=== PATIENT | male | born 1985 | race African-American/Black ===

== ENCOUNTER → 2018-06-19 | Day surgery (SDC) | payer OTHER ==
[~2018-06-19] MED LIST: Fentanyl 100 MCG/2 ML VIAL ONE; Lidocaine 1% PF 5 ML VIAL ONE; Ondansetron HCl/PF 4 MG/2 ML Vial ONE; PHENYLEPHRINE-NS 100 MCG/ML 10 ML SYRINGE ONE; PROPOFOL 200 MG/20 ML VIAL ONE; SUGAMMADEX SODIUM 500 MG/5 ML VIAL ONE
--- NOTE | 2018-06-19 05:42 | CON ---
DATE OF CONSULTATION: 06/19/2018 CHIEF COMPLAINT: Foreign body in urethra. HISTORY: Mr. Mejias is a 33-year-old inmate in [place] longterm brought in after patient passed a foreign body into the urethra and also attempt to swallow foreign body. Imaging demonstrates what lo oks like a piece of paper clip in the posterior urethra. Patient has a prior history of similar inci dents. Most recently had a foreign body removed from the GI tract here in 05/2017. He also states t hat he has had previous foreign bodies removed from the urinary tract, although no records of that be ing performed at this facility and can be found. He denies any pain in the urinary tract at this todd e. He has noted some blood in the urine. PAST MEDICAL HISTORY: Bipolar disorder. PAST SURGICAL HISTORY: Removal of foreign bodies. ALLERGIES: No known drug allergies. SOCIAL HISTORY: He is a nonsmoker, although he has smoked in the past. He is incarcerated. MEDICATIONS: Please see list includes psychiatric meds. PHYSICAL EXAMINATION: GENERAL: He is awake and alert, is in no distress at this time. CHEST: Clear. ABDOMEN: Soft, nontender, no palpable masses. Liver and spleen are palpable. No abdominal tenderne ss noted. IMAGING: Demonstrates metallic foreign body in the region of the proximal urethra. IMPRESSION: Urethral foreign body. RECOMMENDATIONS: Cystoscopic and possible open removal of urethral foreign body. The procedure, pot ential limitations, alternatives, and complications have been discussed with him. He does wish to pr oceed.
--- NOTE | 2018-06-19 06:31 | OP ---
PREOPERATIVE DIAGNOSIS: Urethral foreign body. POSTOPERATIVE DIAGNOSIS: Urethral foreign body. PROCEDURE: Cystoscopy, removal of urethral foreign body. SURGEON: Daren Alves M.D. ANESTHESIA: General. INDICATIONS: Mr. Mejias is an incarcerated inmate at [facility], who has a history of swallo wing foreign bodies and placing foreign bodies in the urinary tract. He did this and was brought to the emergency room. DETAILS OF PROCEDURE: The patient was given general anesthesia. He first underwent removal of respi ratory tract foreign body by Dr. Davis. This portion will be dictated by him. He was then sterilely prepped and draped in lithotomy position. The cystoscope was passed into the urethra. A metal fore ign body was noted just distal to the external sphincter. It was grasped with grasping forceps and r emoved without difficulty. The cystoscope was then passed into the bladder and bladder was examined in its entirety. There were no additional foreign bodies seen. Bladder was drained, cystoscope was removed. The patient was transferred from the operating room to recovery room in stable condition. COMPLICATIONS: None. ESTIMATED BLOOD LOSS: Minimal.
--- NOTE | 2018-06-19 09:48 | RAD ---
2 VIEWS NECK SOFT TISSUES: Date: 06/19/18 COMPARISON: Radiographs from [facility] dated 06/18/18 and radiographs from [facility] dated 06/10/17. HISTORY: Ingested radiopaque foreign body. FINDINGS: Two views of the neck soft tissues shows radiopaque foreign bodies just anterior to the epiglottis. T here is a small amount of air just inferior and anterior to the radiopaque foreign bodies which is no nspecific and could be submucosal. The paper clip seen on the prior examination has been removed or h as passed more distally. No prevertebral soft tissue swelling is seen. IMPRESSION: Radiopaque foreign bodies as above. POS: [facility]
--- NOTE | 2018-06-19 09:51 | RAD ---
SINGLE VIEW OF THE PELVIS: Comparison: Radiograph from [facility], 06-18-18. History: Foreign body in penis. FINDINGS: Single view of the pelvis shows a radiopaque foreign body along the base of the penis. This is unchan ged in position compared to the prior examination. IMPRESSION: Radiopaque foreign body in the base of the penis. POS: [facility]
--- NOTE | 2018-06-19 09:53 | RAD ---
SINGLE VIEW ABDOMEN: HISTORY: Foreign body evaluation. COMPARISON: Study from 06/10/2017 and soft tissue neck study from [facility] on 06/18/2018. FINDINGS: Single view of the abdomen shows a nonspecific, nonobstructed bowel gas pattern. The previously seen paperclip in the neck is now in the left upper quadrant of the abdomen, likely within the stomach. IMPRESSION: Paperclip now located in the stomach. POS: [facility]
--- NOTE | 2018-06-21 11:16 | OP ---
DATE OF PROCEDURE: 06/19/2018 PREOPERATIVE DIAGNOSIS: Hypopharyngeal foreign body. POSTOPERATIVE DIAGNOSIS: Hypopharyngeal foreign body. PROCEDURE PERFORMED: Direct laryngoscopy with removal of foreign body. SURGEON: Iain Davis M.D. ANESTHESIA: General anesthetic. BLOOD LOSS: None. IV FLUIDS: None. COMPLICATIONS: None. FINDINGS: Two pieces of metal plating stuck in the vallecula. INDICATIONS FOR SURGERY: The patient is a 33-year-old man inmate in [place] who came in and swall owed a couple of pieces of metal foreign body that were stuck in his vallecula. He was not having an y airway obstruction. He has done this previously. I was unable to retrieve it in the emergency dep artment. DESCRIPTION OF OPERATION: After properly identifying the patient, the patient was brought to the ope rating room, and placed on the operating table and placed under general anesthetic without difficulty . Prior to anesthesia intubating the patient I placed a GlideScope into the hypopharynx and elevated the base of tongue, which exposed the 2 pieces of metal. I grasped them with a pair of tonsil clamp s and removed both of them. I then examined the base of tongue, vallecula, epiglottis, piriform sinu ses and glottis area and there was no mucosal injury nor was there any residual foreign body. At thi s point, I intubated the patient for him to proceed with a cystoscopy for a foreign body he placed in his penis. The patient was turned over to Dr. Alves and Anesthesia.
== END ==
LOC: ERS 01:11 → SDC/OP 04:39
PROVIDERS: ATTEND Otolaryngology
PROC: 0TCD8ZZ Extirpation of Matter from Urethra, Via Natural or Artificial Opening Endoscopic (ICD-10-PCS; principal; 2018-06-19)
PROC: 0CCM8ZZ Extirpation of Matter from Pharynx, Via Natural or Artificial Opening Endoscopic (ICD-10-PCS; principal; 2018-06-19)
DX: T17.298A Other foreign object in pharynx causing other injury, initial encounter (principal); T19.0XXA Foreign body in urethra, initial encounter; F31.9 Bipolar disorder, unspecified; Z79.899 Other long term (current) drug therapy
CPT/HCPCS: 70360; 72170; 74018; C1758; C1769; J2001; J2405; J2704; J3010

== ENCOUNTER 2018-08-30 20:32 | Inpatient (IN) | payer OTHER ==
[2018-08-30 23:44] VITALS: BMI 27.9
[2018-08-31] MEDS ORDERED: Ondansetron PF 4 MG/2 ML Vial IVP PRN (00:28)
[2018-08-31] MEDS ORDERED: Ondansetron ODT 4 MG TAB PO PRN (00:28)
[2018-08-31] MEDS ORDERED: Acetaminophen 325 MG TAB PO PRN (00:28)
[2018-08-31] MEDS: Sodium Chloride 0.9% 1,000 ML IV SCH ×2 (01:10→13:00)
[2018-08-31 05:22] LABS: Anion Gap 14 mmol/L (10-20); BUN (Urea Nitrogen) 11 mg/dL (8.9-20.6); Calc. Creatinine Clearance 136 mL/min (70-130); Carbon Dioxide 19 mmol/L (22-29); Chloride 107 mmol/L (98-107); Estimated GFR-MDRD Greater than 90; Glucose 71 mg/dL (70-105); Sodium 136 mmol/L (136-145)
[2018-08-31 05:46] LABS: Band 2 % (5-11); Eosinophils 2 % (0-10); Hemoglobin 12.8 g/dL (14.0-18.0); Lymphocytes 31 % (21-51); MDiff Complete? YES; Mean Corpuscular HGB CONC 30.5 g/dL (32.0-36.0); Mean Corpuscular Hemoglobin 23.7 pg (27.0-31.0); Mean Corpuscular Volume 77.9 fL (78.0-98.0); Mean Platelet Volume 8.5 fL (7.4-10.4); Metamyelocyte 2 % (0-0); Monocytes 13 % (0-10); Neutrophil 49 % (42-75); PLT Morphology Comment Appears Adequate; Platelet Count 252 thou/uL (130-400); RBC Distribution Width 15.1 % (11.5-14.5); RBC Morphology Normal; White Blood Cell (WBC) Count 5.5 thou/uL (4.8-10.8)
[2018-08-31] MEDS ORDERED: Fluticasone Propionate HFA 110 MCG AER INH SCH (06:30)
[2018-08-31] MEDS: PROVENTIL INHALER 6.7 G (200 INHALATIONS) INH SCH ×4 (07:00→19:40)
[2018-08-31] MEDS ORDERED: Loratadine 10 MG TAB ONE (07:53)
[2018-08-31] MEDS ORDERED: Docusate 100 MG CAP ONE (07:53)
[2018-08-31] MEDS ORDERED: Oxybutynin 5 MG TAB ONE (07:54)
[2018-08-31] MEDS ORDERED: Venlafaxine HCl XR 75 MG CAP ONE (07:55)
--- NOTE | 2018-08-31 08:02 | HP ---
CHIEF COMPLAINT: "Foreign body in my throat." HISTORY OF PRESENT ILLNESS: This is a 33-year-old male with a past medical history of bipolar diseas e and foreign body insertions, presenting with chief complaint of throat pain and testicular and uret hral pain. Patient was transferred from [place] to our hospital, because the patient swallowed fo reign bodies, and after the removal of 1 foreign body and x-ray confirming that there was a successfu l removal of 1 foreign body, followup images showed that there were more foreign bodies in the patien t's throat. Therefore, Anesthesia in [place] wanted the patient transferred to a facility where t here is an ENT specialist. The ED physician in [place] then contacted Dr. Jason [place], ENT [facility], who basically stated that is okay for the patient to be transferred to [facility], so that patient can be able to receive better care, which cannot be provided at [facility]. Of note, the patient has had a history of swallowing batteries, pencils, razor blades, wires. In December, patient had several foreign bodies removed. Patient states that the reason why he swallows these foreign bodies or insert these foreign bodies into his urethra is because he gets upset and ev jarek time when he gets upset, he has to hurt himself. Dr. Bennett, who is a urologist at [place] was supposed to take the patient in for a urological procedure to remove urethral foreign body; parisi dustin, since patient has numerous foreign bodies in his throat, the patient had to be transferred to [facility] facility to be seen by ENT specialist. At this time, the patient denies any headaches, dizziness, chills, fevers, shortness of breath, palpitations, chest pain, abdominal pain; however, the patient e ndorses throat pain and testicular pain. REVIEW OF SYSTEMS: Positive for throat pain and testicular pain. Otherwise, as documented in the HP I, all other systems were reviewed and are negative. PAST MEDICAL HISTORY: Past medical history of foreign body insertions and bipolar disorder. PAST SURGICAL HISTORY: Cystoscopy with removal of urethral foreign body in 12/2017. FAMILY HISTORY: Reviewed and noncontributory to this visit. SOCIAL HISTORY: Patient denies tobacco use, denies alcohol use, and denies illicit drugs. Patient i s in senior care. CURRENT MEDICATIONS: The patient takes Alavert 10 mg daily, albuterol inhaler p.r.n., carbamazepine 200 mg b.i.d., haloperidol 5 mg at bedtime, Colace 100 mg b.i.d., omeprazole 20 mg daily, Flovent 100 mcg b.i.d., Ditropan 5 mg b.i.d., Benadryl 50 mg at bedtime p.r.n., Zoloft 50 mg daily. PHYSICAL EXAMINATION: GENERAL: The patient is alert and oriented x3, not in acute distress. The patient is lying in bed. The patient has shackles on and the patient is wearing his glasses. VITAL SIGNS: Blood pressure is 125/72, heart rate of 60. Patient is afebrile. Oxygen saturation is 98 on room air. HEENT: Normocephalic, atraumatic. Pupils are equally round and reactive to light. Extraocular move ments are intact. NECK: No JVD. Full range of motion, supple. LUNGS: Clear to auscultation bilateral. No wheezing, no rales, no rhonchi is appreciated. CARDIOVASCULAR: Positive S1 and S2, regular rate and rhythm. No murmurs, no gallops, or rubs apprec iated. ABDOMEN: Soft, nontender, nondistended. Normal bowel sounds. EXTREMITIES: No edema at the lower extremities. A 5/5 upper and lower extremities bilaterally. Pat ient does have shackles in place at the wrist and at the ankles. NEUROLOGIC: Cranial nerves II-XII grossly intact. No neurologic deficits noted. PSYCHIATRIC: Alert, oriented x3, not in acute distress. Patient has normal affect at this time. LABORATORY DATA: WBC is 5.5, hemoglobin is 12.8, hematocrit is 42.0, MCV is 77.9, RDW is 15.1, plate lets 252. Electrolytes: Sodium is 136, potassium is 4.0, chloride 107, carbon dioxide of 19, anion gap of 14, BUN is 11, creatinine is 0.91, glucose is 71, calcium is 9.0. IMAGING: X-ray of the neck, soft tissue, two views, which was done at 12:30 a.m. on 08/30/2018 shows that there was successful removal of foreign body from the vallecula and another neck soft tissue x- ray, which was done on 08/30/2018, showed radiopaque foreign object within the vallecula with subcuta neous emphysema around the epiglottis. So, prior to the 08/30/2018 x-ray, x-ray that was done on showed that there are at least 5 foreign bodies consistent with ingested razor blade. The x- ray that was done of the abdomen on 08/29/2018 showed that there was radiopaque foreign bodies seen w ithin the gastrointestinal system, in the upper pelvis. There also appears to be a radiopaque nail w ithin the base of the penis in the expected location of the urethra. Urine drug screen was negative. ASSESSMENT AND PLAN: This is a 33-year-old male, being admitted for, 1. Foreign body insertion in the urethra and in the throat. At this point, the patient has been tra nsferred to our facility to be seen by an ENT specialist to remove foreign body in the throat. At th is point, we will monitor the patient. We will make the patient n.p.o. and will follow up with ENT's recommendations. 2. Foreign body insertion in the urethra. We have consulted Urology to help remove some of these fo reign bodies in the urethra, which has been seen on imaging. 3. Bipolar disorder. The patient is on numerous psychiatric medications. At this point, we are hol ding patient's medication since the patient is strictly n.p.o. 4. Self-mutilating disorder. The patient will benefit from [facility] and patient will benefit from [facility] psychiatrist. 5. Deep venous thrombosis and gastrointestinal prophylaxis.
[2018-08-31] MEDS ORDERED: Docusate 100 MG CAP PO SCH (09:00)
[2018-08-31] MEDS ORDERED: Non-Formulary Item 1 EACH (Omeprazole [Omeprazole] 20 MG) PO SCH (09:00)
[2018-08-31] MEDS ORDERED: Venlafaxine HCl XR 75 MG CAP PO SCH (09:00)
[2018-08-31] MEDS ORDERED: Oxybutynin 5 MG TAB PO SCH (09:00)
[2018-08-31] MEDS ORDERED: Loratadine 10 MG TAB PO SCH (09:00)
[2018-08-31] MEDS ORDERED: Benzocaine 20% Spray 60 ML CAN FS SCH (09:00)
[2018-08-31] MEDS: Mometasone 100 MCG HFA INHALER INH SCH ×2 (11:06→19:42)
--- NOTE | 2018-08-31 12:56 | PDOC.PN ---
- Subjective Encounter Start Date: 08/31/18 Encounter Start Time: 12:54 Mr. Mejias was seen today in follow-up of razor blade ingestion. He says he has some left sided abdominal pain. He says he vomitied some blood yesterday, but none today. He denies any melena, and blood in the stools. When asked if he did this in an attempt to kill himself, he denies this, and says he was just frustrated, and it was an act of defiance. - Objective Resuscitation Status: Resuscitation Status FULL:Full Resuscitation MAR Reviewed: Yes Vital Signs & Weight: Vital Signs (12 hours) Temp Pulse Resp BP Pulse Ox 08/31/18 11:22 99.5 F 100 15 141/83 H 98 08/31/18 11:06 81 16 08/31/18 11:04 81 16 08/31/18 09:03 98.1 F 81 16 134/69 97 08/31/18 03:30 98.2 F 75 18 118/65 98 Weight Weight 183 lb 9.6 oz Result Diagrams: 08/31/18 04:47 08/31/18 04:47 Phys Exam - Physical Examination HEENT: PERRLA Respiratory: no wheezing, no rales, no rhonchi, clear to auscultation bilateral Cardiovascular: RRR, no significant murmur, no rub no gallop Gastrointestinal: soft, no distention, positive bowel sounds + left upper quandrant tenderness no rebound or guarding Musculoskeletal: no edema Dx/Plan (1) Foreign body ingestion Code(s): T18.9XXA - FOREIGN BODY OF ALIMENTARY TRACT, PART UNSP, INIT ENCNTR Status: Acute (2) Bipolar disorder Code(s): F31.9 - BIPOLAR DISORDER, UNSPECIFIED Status: Acute - Plan * Foreign Body ingestion- there are possibly 3 more razor blades in the GI tract. The one in his throat was retrieved by Dr. [place] ( ENT) * Will obtain a KUB and CXR to estimate the location of the others, and possible GI evaluation- there are no clinical signs of perforation or obstruction. There has been clinical indication for bleeding so far * He reports to have placed one in his urethra- Urology to evaluate.
--- NOTE | 2018-08-31 14:33 | RAD ---
NECK 2 VIEWS CHEST 1 VIEW ABDOMEN 1 VIEW: Date; 08/31/18 HISTORY: Swallowed razor blades. FINDINGS/IMPRESSION: No radiopaque foreign body is seen in the neck or chest. There are three razor blades in the abdomen. The first is in the left upper quadrant and could be in the stomach or loop of small bowel. The second is in the left lower quadrant and the third is in the right lower mid abdomen (right paramedian). The lower two razor blades are likely in small bowel loop s. There is a radiopaque density in the projection of the right colon. This could also represent another foreign body which does not have the appearance of a razor blade. POS: [facility]
[2018-08-31] MEDS: Sodium Chloride 0.65% Nasal 44 ML BOT EA NARE SCH ×2 (14:47→16:03)
[2018-08-31 16:15] VITALS: BP 130/71; TEMP 97.7
--- NOTE | 2018-08-31 17:12 | CON ---
DATE OF CONSULTATION: 08/31/2018 CONSULTING PHYSICIAN: Sandra. REASON FOR CONSULTATION: Foreign body in pharynx. HISTORY OF PRESENT ILLNESS: Mr. Mejias is a 33-year-old male who is an inmate in [place] who has had a history of swallowing foreign bodies mainly razor blades. Apparently, he recently swa llowed some more razor blades and was found to have several of them in his stomach, but had one in hi s throat reportedly in the area of the vallecula. He was transferred here for removal of this razor blades before anything further can be done for another foreign body in his bladder. He does not have any complaints of pain. He is not having hemoptysis. He is not having dysphagia or hoarseness and there has been no shortness of breath or coughing. This has happened before. No other complaints. Please see his admission history and physical for further details of his past medical history and rev iew of systems. PHYSICAL EXAMINATION: GENERAL: Well-developed, well-nourished white male in no acute distress. HEAD: Normocephalic, atraumatic. Pupils are equal, round, react to light. Extraocular movements in tact. EARS: Tympanic membranes intact, mobile, clear. NOSE: Mucosa is pink and healthy. I do not seeing signs of any purulent drainage or infection. ORAL CAVITY AND OROPHARYNX: Mucosa is pink and healthy. No signs of any lacerations, erythema or ex udate. Teeth appear to be in good repair. THROAT: I did not see an obvious foreign body initial, sprayed his throat down with Hurricaine. Aft er getting adequate anesthesia, we were able to saw white foreign body on the posterior left lateral aspect of the throat. We were able to grab it and pulled it out and it turned out to be a razor blad e with toilet paper wrapped around it or tissue paper. This appears to have been the foreign body th at was seen on the x-ray. No other lesions were seen. NECK: Without significant adenopathy or mass. Thyroid is palpably normal. LUNGS: Clear to auscultation. HEART: Regular without murmur or gallop. IMPRESSION: foreign body of the pharynx appears to be removed. We will get a soft tissue late ral and AP neck to see if there is any indication of any other foreign bodies, but that was the only reported one seen. We will have GI evaluate whether or not anything needs to be done about the ones in his stomach and Urology take care of the foreign body in his bladder. Return to see me as needed.
--- NOTE | 2018-08-31 17:46 | RAD ---
NECK 2 VIEWS CHEST 1 VIEW ABDOMEN 1 VIEW: Date; 08/31/18 HISTORY: Swallowed razor blades. FINDINGS/IMPRESSION: No radiopaque foreign body is seen in the neck or chest. There are three razor blades in the abdomen. The first is in the left upper quadrant and could be in the stomach or loop of small bowel. The second is in the left lower quadrant and the third is in the right lower mid abdomen (right paramedian). The lower two razor blades are likely in small bowel loops. There is a radiopaque density in the projection of the right colon. This could also represent another foreign body which does not have the appearance of a razor blade. POS: [facility]
--- NOTE | 2018-08-31 18:08 | CON ---
DATE OF CONSULTATION: 08/31/2018 UROLOGY INPATIENT CONSULTATION REASON FOR CONSULTATION: Foreign body in urethra. HISTORY OF PRESENT ILLNESS: Mr. Mejias is a 33-year-old male with an inmate in [place] who was t ransferred to our facility for higher level of care. He has a psychiatric history with history of sw allowing multiple foreign bodies including razor blades and also placing foreign bodies in his urethr a. He has required both extraction from his GI tract as well as his urinary tract on multiple occasi ons in the past. The patient recently swallowed a series of razor blades what he describes as a piec e of copper wire and a button in his urethra. He was evaluated for this in [place]. One of the f oreign bodies were successfully removed from somewhere within the oropharynx or esophagus, but an x-r ay revealed a razor blade right at the vallecula as well as multiple others. There was also a foreig n body within the proximal urethra. He was evaluated by Urology in the emergency department there, Samira Bennett, who attempted cystoscopic extraction; however, was unable to remove it in the emergency room. He was scheduled for surgery; however, anesthesia declined putting the patient to sleep secon ezra to the foreign body in the throat. He was therefore transferred here. Earlier this morning, Dr. [place] with Otolaryngology successfully removed the razor blade at the beds alo. The patient currently is voiding well. He reports there is no gross blood in the urine; howeve r, he does have some dysuria. He is emptying his bladder to completion. No fever or chills. No oth er complaints. REVIEW OF SYSTEMS: Full 12-point review of systems was performed and is negative other than that men tioned in the HPI. PAST MEDICAL HISTORY: 1. Foreign body insertions. 2. Bipolar disorder. PAST SURGICAL HISTORY: Cystoscopy with removal of urethral foreign body on 12/2017. FAMILY HISTORY: Noncontributory. SOCIAL HISTORY: No alcohol, tobacco or illicit drugs. The patient is in halfway in [place]. MEDICATIONS: Alavert, albuterol, carbamazepine, haloperidol, Colace, omeprazole, Flovent, Ditropan, Benadryl, Zoloft. PHYSICAL EXAMINATION: VITAL SIGNS: Blood pressure 122/73, heart rate 60, afebrile, oxygen saturation 98% on room air. GENERAL: Alert and oriented x3, in no apparent distress. HEENT: Normocephalic, atraumatic. NECK: Supple, no masses or lymphadenopathy. LUNGS: Breathing unlabored, no wheezing. CARDIOVASCULAR: Regular rate and rhythm. ABDOMEN: Soft, nontender/nondistended, no suprapubic tenderness to palpation, no CVA tenderness. GENITOURINARY: Normal penis without concerning lesion. Meatus normal, urethra palpably normal, no f oreign body palpable in the penile or proximal urethra palpated through the perineum, testes palpably normal bilaterally. EXTREMITIES: Warm and well perfused, no edema. NEUROLOGIC: No focal deficits. LABORATORY DATA: White blood cell count 5.5, hemoglobin 12.8, hematocrit 42.0, platelets 252, creati nine 0.91, BUN 11. ASSESSMENT: A 33-year-old male with foreign body insertion in urethra and throat. PLAN: Dr. [place] was successfully able to remove the razor blade from the patient's oropharynx. He is currently being evaluated by Gastroenterology to see if any of the razor blades are accessible. I f the patient is going to undergo any other procedure under anesthesia at this facility, cystoscopic extraction of the foreign body which is likely in his proximal urethra can be performed. If, however , the patient is safe for discharge from this facility and there is no intervention necessary for the remaining foreign bodies, he can follow up with his urologist, Dr. Bennett, in [place] for bobby uriel of the foreign body given the fact that anesthesia will now be possible since the razor blade and the pharynx has been extracted. Please call with questions.
[2018-08-31] MEDS ORDERED: Haloperidol 5 MG TAB PO SCH (21:00)
--- NOTE | 2018-08-31 23:12 | DIS ---
DATE OF ADMISSION: 08/30/2018 DATE OF DISCHARGE: 08/31/2018 DISCHARGE DISPOSITION: Back to the assisted. DISCHARGE DIAGNOSES: 1. Ingestion of foreign body. 2. Bipolar disorder. DISCHARGE MEDICATIONS: Include Effexor 75 mg daily, tolnaftate 30 grams twice a day, [place] nasal spr ay 2 drops in each naris daily, Claritin 10 mg daily, omeprazole 20 mg daily, oxybutynin 5 mg twice a day, Zoloft 50 mg daily, Haldol oral suspension 5 mg at bedtime, Flovent 100 mcg inhaled twice a day , albuterol nebs q.i.d. as needed, and docusate sodium 100 mg twice daily. PROCEDURES DONE DURING ADMISSION: The patient had the retrieval or extraction of a razor blade from the patient's throat by Dr. [place] with ENT. CODE STATUS: FULL CODE. ALLERGIES: To ORANGES. HOSPITAL COURSE: Mr. Mejias is a 33-year-old inmate in the [facility] who ingested s everal razor blades. He tells me that this was not in an attempt to kill or harm himself. He says t hat he was just acting and "defiance." He was transferred to our facility to facilitate the removal of the razor blade which was radiographed in the throat area. He was seen by the ENT specialist who extracted the razor blade in the throat. X-rays demonstrated that he did have three other razor blad es in the abdomen area and x-ray of the abdomen and chest were done and there were three razor blades present, one in the left upper quadrant which could be in the stomach or in the small bowel loops. The second was in the left lower quadrant and third was in the right lower mid abdomen paramedian. T he lower two razor blades were likely in the small bowel loops. The patient's normal treatment would be performed at [facility] and once the additional razor blades were discovered, we made an effort to hopkins sfer the patient to [facility], their medical assistant is Dr. Eneida Piña and he stated that since the ra zor blades had crossed the gastroesophageal junction, the usual procedure is to allow these to pass o n their own under direct supervision at the assisted. Therefore, transfer to [facility] was not necessary and that he could be discharged from our facility as well. His hemoglobin was 12.8. There were no signs of any active bleeding. There were no signs of obstruction either clinically or radiographically. Therefore, the patient will be discharged from our facility to go to either the crisis management bed at the assisted or to the direct observation unit.
== END 2018-08-31 20:33 | DRG 156 ==
LOC: 2NO 22:34
PROVIDERS: ADMIT Internal Medicine; ATTEND Internal Medicine
PROC: 0CCM7ZZ Extirpation of Matter from Pharynx, Via Natural or Artificial Opening (ICD-10-PCS; principal; 2018-08-31)
DX: T17.298A Other foreign object in pharynx causing other injury, initial encounter (principal); T18.2XXA Foreign body in stomach, initial encounter; T18.3XXA Foreign body in small intestine, initial encounter; T19.0XXA Foreign body in urethra, initial encounter; F31.9 Bipolar disorder, unspecified; Z91.018 Allergy to other foods; Z79.899 Other long term (current) drug therapy; X83.8XXA Intentional self-harm by other specified means, initial encounter; Y92.149 Unspecified place in prison as the place of occurrence of the external cause
CPT/HCPCS: 36415; 70360; 71045; 74018; 80048; 85025; 94664

== ENCOUNTER 2018-11-21 17:59 | Day surgery (SDC) | payer OTHER ==
[~2018-11-21 17:59] MED LIST changes: -Fentanyl 100 MCG/2 ML VIAL ONE; -Lidocaine 1% PF 5 ML VIAL ONE; -Ondansetron HCl/PF 4 MG/2 ML Vial ONE; -PHENYLEPHRINE-NS 100 MCG/ML 10 ML SYRINGE ONE; +Rocuronium Bromide 10 MG/ML (10ML VIAL) ONE; -SUGAMMADEX SODIUM 500 MG/5 ML VIAL ONE; +Vecuronium 10 MG VIAL ONE
--- NOTE | 2018-11-21 19:27 | RAD ---
AP VIEW CHEST: 11/21/18 HISTORY: Ingested razor blade and a battery. AP view chest is obtained. EKG leads seen over the chest. The lungs are well aerated. No evidence of active intrathoracic disease seen. No evidence of effusions, pneumonia or pneumothorax seen. IMPRESSION: Unremarkable AP view chest. POS: [facility]
--- NOTE | 2018-11-21 19:30 | RAD ---
AP VIEW ABDOMEN: 11/21/18 HISTORY: Patient swallowed a razor, washer, battery, and stuck a razor blade up his penis. AP view abdomen demonstrates what appears to be metallic density over the descending colon which may represent an ingested battery. There is a radiopaque metallic density over the base of the penis whic h may represent a razor blade which has been placed up the patient's penis. No other definite razor blade seen on plain film radiographs. No dilated loops of bowel seen. IMPRESSION: 1. Possible razor blade along the base of the penis or other foreign body in this area. 2. Radiopaque density compatible with a battery in the descending colon. POS: [facility]
--- NOTE | 2018-11-21 19:33 | RAD ---
LATERAL VIEW PELVIS: 11/21/18 HISTORY: Patient who placed a razor blade in his penis. Single lateral view of pelvis is obtained. There is a radiopaque density along the base of the penile urethra. No other abnormalities seen. IMPRESSION: Radiopaque density in the expected location of the base of the urethra. POS: [facility]
[2018-11-21 19:58] LABS: Bilirubin Negative (Negative); Blood, Urine Negative (Negative); Clarity CLEAR (Clear); Glucose, Urine (Dipstick) Negative (Negative); Leukocyte Trace (Negative); Nitrite Negative (Negative); Protein, Urine (Dipstick) Negative (Neg-Trace); Specific Gravity, Urine 1.013 (1.002-1.036); Urobilinogen 0.2 mg/dL (0.2-1.0); pH, Urine 7.5 (5.0-9.0)
[2018-11-21 20:00] LABS: Bacteria/HPF None Seen HPF (None Seen); Hyaline Casts/LPF 0-3 HYALINE CAST LPF (0-3 Hyaline); RBC/HPF None Seen HPF (0-3); Squamous Epithelial None Seen HPF (0-3)
--- NOTE | 2018-11-21 20:36 | RAD ---
TWO VIEWS SOFT TISSUE NECK: 11/21/18 HISTORY: Patient swallowed washer. AP and lateral views soft tissue neck is obtained. There is a radiopaque washer lodged in the vallecula. This is superior to the epiglottis. IMPRESSION: Radiopaque washer seen within the vallecula. POS: [facility]
[2018-11-21] MEDS ORDERED: Fentanyl 100 MCG/2 ML VIAL ONE ×2 (20:50→22:04)
[2018-11-21] MEDS ORDERED: SUGAMMADEX SODIUM 500 MG/5 ML VIAL ONE (21:16)
[2018-11-21] MEDS ORDERED: CEFAZOLIN 2 GM/50 ML BAG ONE (21:40)
[2018-11-21] MEDS ORDERED: Meperidine HCl/PF 25 MG/ML VIAL ONE (21:53)
[2018-11-21] MEDS ORDERED: Ondansetron PF 4 MG/2 ML Vial ONE (22:20)
[2018-11-21] MEDS ORDERED: HYDROcodone/Acetaminophen 5/325 mg Tablet ONE (22:28)
--- NOTE | 2018-11-22 05:22 | OP ---
DATE OF PROCEDURE: 11/21/2018 PREOPERATIVE DIAGNOSIS: Foreign body in urethra. POSTOPERATIVE DIAGNOSIS: Foreign body in urethra. PROCEDURE PERFORMED: Cystoscopy, removal of foreign body. ANESTHETIC: General. ESTIMATED BLOOD LOSS: Minimal. FINDINGS: He had a end of metal zipper the pull up and down tab of the zipper that was in the bulb of the urethra. 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 The stricture, however, was not narrow enough to occlude the 22-Grenadian sheath that was easily passed through it after removing the foreign body and entered the bladder. The bladder was examined, 2 ureteral orifices, clear efflux. No tumor, foreign body, stone, or fistula. Mildly enlarged prostate. Because there was no bleeding and because there was no significant injury to the urethra, Gaston catheter was not placed. The patient is uncircumcised. He had no other lesions. No other foreign bodies noted. Testicles descended without mass or tenderness. DESCRIPTION OF PROCEDURE: After obtaining consent from the patient, he was taken to the operating suite. He was initially taken to one of the main OR for removal of foreign body from his throat. Once this was completed, he was transferred to the cysto, still intubated, placed in dorsal lithotomy position, sterilely prepped and draped. Cystoscopy was performed with a 22-Grenadian sheath, this was well lubricated passed under direct vision through the male urethra down to the level of the bulb, where foreign object was identified, grasped with a pair of flexible grasping forceps and removed. We then repeated cystoscopy going all the way into the bladder and examined the bladder with both the 30 and 70 degree lens. The instruments were then removed. The foreign body was sent for gross only. The patient was awakened, extubated, taken by rosier to recovery room. Job ID: [id number]
--- NOTE | 2018-11-22 07:02 | CON ---
DATE OF CONSULTATION: REASON FOR CONSULTATION: The patient is seen for evaluation of a laryngeal foreign body. BRIEF HISTORY: This is a 33-year-old gentleman, history of schizophrenia, suicidal attempts, and foreign body ingestion in the past. He had stuck a washer down his throat, swallowed it. Since that time, his airway has been fine. Voice has been stable. However, x-ray confirms placement of metallic object in the back of his throat. PAST MEDICAL HISTORY: Schizophrenia, suicidal ideation, asthma, history of foreign body ingestions. ALLERGIES: NO KNOWN DRUG ALLERGIES. PREVIOUS SURGICAL HISTORY: Multiple. FAMILY HISTORY: Noncontributory. REVIEW OF SYSTEMS: GENERAL: No fevers, chills, weight changes. CARDIOVASCULAR: No chest pain or shortness of breath. PULMONARY: No active asthma recently. PHYSICAL EXAMINATION: GENERAL: The patient is resting comfortably in bed. NECK: No lymphadenopathy. No masses. Voice is fairly clear with no stridor. Oral cavity, pharynx, no visualized foreign body seen. Nasal cavity is clear. RADIOLOGY DATA: AP and lateral views of the neck confirmed a large metallic object consistent with a washer in the vallecular area, possibly the cricopharyngeal area. ASSESSMENT: Laryngeal foreign body. PLAN: Risks, benefits, and alternatives were discussed for direct laryngoscopy, removal of foreign body, and any other indicated procedures. The patient agrees to proceed. Job ID: [id number]
--- NOTE | 2018-11-22 07:03 | OP ---
DATE OF PROCEDURE: 11/21/2018 PREOPERATIVE DIAGNOSES: 1. Laryngeal foreign body. 2. Upper airway obstruction. 3. Stridor. POSTOPERATIVE DIAGNOSES: 1. Laryngeal foreign body. 2. Upper airway obstruction. 3. Stridor. PROCEDURES: Direct laryngoscopy with removal of foreign body. ESTIMATED BLOOD LOSS: 0 mL. COMPLICATIONS: None. ANESTHESIA: GETA. PROCEDURE IN DETAIL: The patient was taken to the operating room and placed supine on the table. Rapid sequence anesthesia was performed. The Dedo laryngoscope was used to examine the oral cavity, oropharynx is noted to be a large metal washer sitting in the vallecula. This was removed with forceps. There was only minor abrasions to this area. There is no edema or swelling. The bilateral vocal cords were intact. Subglottic area and trachea were clear. Pyriform sinuses and postcricoid mucosa were clear. The patient was then intubated and turned over to Anesthesia for transfer to cystoscopy room for genitourinary procedures. Job ID: [id number]
== END 2018-11-21 22:50 ==
LOC: ERS 17:59 → SDC/OP 21:34
PROVIDERS: ATTEND Urology
PROC: 0CCS8ZZ Extirpation of Matter from Larynx, Via Natural or Artificial Opening Endoscopic (ICD-10-PCS; principal; 2018-11-21)
PROC: 0TCD8ZZ Extirpation of Matter from Urethra, Via Natural or Artificial Opening Endoscopic (ICD-10-PCS; principal; 2018-11-21)
DX: T19.0XXA Foreign body in urethra, initial encounter (principal); T17.398A Other foreign object in larynx causing other injury, initial encounter; N35.912 Unspecified bulbous urethral stricture, male; F20.9 Schizophrenia, unspecified; J45.909 Unspecified asthma, uncomplicated; R45.851 Suicidal ideations; Z79.51 Long term (current) use of inhaled steroids; Z79.899 Other long term (current) drug therapy; Z91.018 Allergy to other foods
CPT/HCPCS: 70360; 71045; 72170; 74018; 81003; 81015; 88300; J2175; J2405; J2704; J3010